=== PATIENT | female | born 1995 | race Caucasian/White ===

== ENCOUNTER 2017-06-16 01:03 | Emergency (ER) | payer MEDICAID ==
[~2017-06-16] VITALS: Ht 157.5 cm; Wt 65.0 kg
[~2017-06-16 01:03] MED LIST: PRENCAP6 PO
[2017-06-16 01:04] VITALS: BP 131/82; PULSE 76; RESP 16; TEMP 98.1; O2SAT 100
--- NOTE | 2017-06-16 01:51 | PD ---
HPI Chief Complaint: Skin Problem Time Seen by Provider: 01:45 Travel History International Travel<30 days: No Contact w/Intl Traveler<30days: No Traveled to known affect area: No History of Present Illness HPI Patient's complaining of rash bilateral hands for "a few weeks". Patient states she's been trying [id number]-hqi-eqkeoiv hydrocortisone cream along with using dish gloves at work with minimal improvement of her symptoms. Patient reports she uses dish soap, cleaning chemicals, and bleach at her job and has been there for approximately one year. Reports she did not have any issues until the past few weeks. Patient denies any other known allergen exposure. Denies any weight loss or fevers. Denies anything making it worse. Patient states she just put her discloses on and off as needed but occasionally does not do this. PFSH Past Medical History Anxiety: Yes Depression: Yes Developmental Delay: No Diminished Hearing: No Psychiatric: Yes (PANIC ATTACKS) Reproductive: Yes (HX OF RT OVARIAN CYST, HPV +, PRE CANCEROUS CERVICAL CELLS) Immunizations Current: Yes ?: Not : 2 Para: 2 Ovarian Cysts: Yes Past Surgical History Section: Yes (x2) Tonsillectomy: Yes (T&A) Social History Alcohol Use: No Tobacco Use: No Substance Use: No Allergies-Medications (Allergen,Severity, Reaction): Coded Allergies: Augmentin (Verified Allergy, Severe, HIVES, 06/16/17) Reported Meds & Prescriptions Reported Meds & Active Scripts Active No Active Prescriptions or Reported Medications Review of Systems Except as stated in HPI: all other systems reviewed are Neg Physical Exam Narrative GENERAL: Well-developed, overly nourished, in no acute distress, and non-ill appearing. SKIN: Rash on bilateral hands consistent with contact dermatitis. There is no signs of secondary infection. HEAD: Atraumatic. Normocephalic. EYES: Pupils equal and round. EOMI. No scleral icterus. No injection or drainage. ENT: No nasal bleeding or discharge. Mucous membranes pink and moist. NECK: Trachea midline. Supple. No nuclear rigidity. RESPIRATORY: No accessory muscle use. No respiratory distress. MUSCULOSKELETAL: No obvious deformities. No clubbing. No cyanosis. No edema. Full range of motion. NEUROLOGICAL: Awake and alert. No obvious cranial nerve deficits. Motor grossly within normal limits. Normal speech. PSYCHIATRIC: Appropriate mood and affect; insight and judgment normal. Data Data Last Documented VS Vital Signs Date Time Temp Pulse Resp B/P Pulse Ox O2 Delivery O2 Flow Rate FiO2 06/16/17 01:04 98.1 76 16 131/82 100 Room Air MDM Medical Decision Making Medical Screen Exam Complete: Yes Emergency Medical Condition: Yes Differential Diagnosis Syphilis, contact dermatitis, rzpa-bftg-dqq-mouth disease, paronychia, cellulitis, other Narrative Course The rash appears consistent with contact dermatitis. There were no blisters or bullae, target lesions, purpura or petechia, nor vesiculobullous or scarlatiniform lesions. The patient looks great and was non-ill appearing. There was no evidence of secondary infection. There was no evidence to suggest scabies, cellulitis, folliculitis or abscess, Staph. Scalded Skin Syndrome, Toxic Shock, Toxic Epidermal necrolysis, Kawasakis, Measles, Rubella, cutaneous T cell lymphoma, Erythema Multiforme (minor or major). Plan of care was discussed with the patient and the patient is to follow up with their physician. The patient agreed with plan. Patient in no obvious distress upon re-evaluation. Any questions/concerns in reference to patient diagnosis/condition discussed and clarified prior to patient's discharge. Reinforced sheer importance of close follow up with patient 's primary physician or primary care clinic. Instructed patient to return to ED immediately, if symptoms return/worsen. Pt showed understanding of above instructions. Further instructions and recommendations were detailed in discharge paperwork. Pt ambulated without difficulty out of ED at discharge. Diagnosis Primary Impression: Contact dermatitis Qualified Code: L25.9 - Contact dermatitis, unspecified contact dermatitis type, unspecified trigger Referrals: [facility] Patient Instructions: Contact Dermatitis (ED), General Instructions Additional Instructions: Follow-up with your primary care physician, timber inspector, and/or table lever operator next week for reevaluation. Use [id number] hydrocortisone cream, calamine lotion, and Claritin or Benadryl for symptomatic relief. Follow instructions on the packaging. Avoid possible irritants. Return to the emergency department if symptoms get worse. Scripts No Active Prescriptions or Reported Meds Disposition: DISCHARGE HOME Condition: Stable Shorty Penn Jun 16, 2017 01:50
== END 2017-06-16 02:19 | disposition home or self-care (01) ==
LOC: NEPK 01:03
DX: L25.9 Unspecified contact dermatitis, unspecified cause (principal)
CPT/HCPCS: 99282